=== PATIENT | female | born 1940 | race Hispanic/Latino ===

== ENCOUNTER 2020-11-21 08:35 | Day surgery (SDC) | payer MEDICARE ==
[2020-11-21] MEDS ORDERED: SODIUM CHLORIDE 0.9% 500 ML 500 ML IV SCH (10:00)
[2020-11-21] MEDS ORDERED: NITROGLYCERIN 0.4 MG TAB SUBL SL ONE (10:45)
[2020-11-21] MEDS ORDERED: ATROPINE 0.1% (1 MG/10 ML) CARDIAC SYRINGE ONE (10:45)
[2020-11-21] MEDS ORDERED: EPINEPHrine 1 MG/10 ML SYRINGE ONE (10:45)
[2020-11-21 12:35] VITALS: BP 135/51
--- NOTE | 2020-11-21 15:50 | Tilt Table Report ---
TILT TABLE TEST PREOPERATIVE DIAGNOSES: Near syncope, dizziness. DESCRIPTION OF PROCEDURE: Tilt-table test. DOCUMENTATION OF INFORMED CONSENT: The potential risks associated with tilt-table testing were explained to the patient. The patient is cognitive of these risks and willing to proceed with the proposed procedure. Written informed consent is on the chart. DESCRIPTION OF PROCEDURE: The patient was brought to the procedure room in the post-absorptive state. She underwent passive head-up tilt-table testing with constant electrocardiogram and blood pressure monitoring. The tilt protocol used was a baseline tilt. No isoproterenol or nitroglycerin was used. The patient was tilted to 80 degrees in the erect position. During the procedure, the patient did not develop any symptoms of lightheadedness or near syncope. After 30 minutes, the patient was placed in the supine position. The baseline heart rate was 60 beats per minute with a baseline blood pressure of 204/83 mmHg. Upon initial erect position, the patient's heart rate was 62 beats per minute and the blood pressure is 186/77 mmHg. The patient was erect for 30 minutes without symptoms. COMPLICATIONS: None. IMPRESSION: Negative head-up tilt table test. PLAN: The patient will follow up with her primary commissioned sales associate. JOB# [id number]
== END 2020-11-21 13:05 | disposition home or self-care (01) ==
LOC: CATHLABREC 08:35
PROVIDERS: ATTEND Internal Medicine Cardiovascular Disease
DX: R42 Dizziness and giddiness (principal); R55 Syncope and collapse; G62.9 Polyneuropathy, unspecified; E78.00 Pure hypercholesterolemia, unspecified; I10 Essential (primary) hypertension; K21.9 Gastro-esophageal reflux disease without esophagitis; M19.90 Unspecified osteoarthritis, unspecified site; Z90.49 Acquired absence of other specified parts of digestive tract; Z90.710 Acquired absence of both cervix and uterus; Z98.890 Other specified postprocedural states; Z85.828 Personal history of other malignant neoplasm of skin; Z91.041 Radiographic dye allergy status; Z88.8 Allergy status to other drugs, medicaments and biological substances; Z79.899 Other long term (current) drug therapy; Z86.73 Personal history of transient ischemic attack (TIA), and cerebral infarction without residual deficits; Z86.2 Personal history of diseases of the blood and blood-forming organs and certain disorders involving the immune mechanism
CPT/HCPCS: 93660; J7040; J0171; J0461